=== PATIENT | male | born 1950 | race Caucasian/White ===

== ENCOUNTER 2018-06-05 13:14 | Inpatient (IN) | payer MEDICARE ==
[~2018-06-05] VITALS: Ht 167.6 cm; Wt 68.0 kg
[2018-06-05] MEDS ORDERED: ACET325T53 PO (13:43)
[2018-06-05] MEDS ORDERED: CARV3.12 PO (13:43)
[2018-06-05] MEDS ORDERED: HYDR-3326 PO (13:43)
[2018-06-05] MEDS ORDERED: HYDR-552 PO (13:43)
[2018-06-05] MEDS ORDERED: BENA40TA67 PO (13:43)
[2018-06-05] MEDS ORDERED: FAMO-132 PO (13:43)
[2018-06-05] MEDS ORDERED: LORA-258 PO (13:43)
[2018-06-05] MEDS ORDERED: CLOP75TA15 PO (13:43)
[2018-06-05] MEDS ORDERED: DIVA125T2 PO (13:43)
[2018-06-05] MEDS ORDERED: FLUV25TA3 PO (13:43)
[2018-06-05] MEDS ORDERED: SIMV20TA2 PO (13:43)
[2018-06-05] MEDS ORDERED: CALC-883 PO (13:43)
[2018-06-05] MEDS ORDERED: LINA145C PO (13:43)
[2018-06-05] MEDS ORDERED: MELA3TAB PO (13:43)
[2018-06-05 13:45] LABS: BASOPHILS # (AUTO) 0.1 K/uL (0.0-8.0); BASOPHILS % (AUTO) 0.7 % (0.0-2.0); EOSINOPHILS # (AUTO) 0.1 K/uL (0.0-0.7); EOSINOPHILS % (AUTO) 0.9 % (0.0-7.0); HEMATOCRIT 52.4 % (36.7-47.1); HEMOGLOBIN 17.9 g/dL (12.5-16.3); LYMPHOCYTES # (AUTO) 1.6 K/uL (20.0-40.0); LYMPHOCYTES % (AUTO) 14.9 % (20.5-51.5); MEAN CORPUSCULAR HEMOGLOBIN 31.7 uug (23.8-33.4); MEAN CORPUSCULAR HGB CONC 34 g/dL (32.5-36.3); MEAN CORPUSCULAR VOLUME 92.9 fL (73.0-96.2); MONOCYTES # (AUTO) 1.2 K/uL (2.0-10.0); MONOCYTES % (AUTO) 11.4 % (0.0-11.0); NEUTROPHILS # (AUTO) 7.8 K/uL (1.8-8.9); NEUTROPHILS % (AUTO) 72.1 % (38.5-71.5); PLATELET COUNT (AUTO) 219 K/uL (152-348); RED BLOOD CELL COUNT(AUTO) 5.64 MIL/uL (4.06-5.63); WHITE BLOOD COUNT (AUTO) 10.8 K/uL (3.6-10.2)
[2018-06-05 13:54] LABS: CREATININE 1.5 mg/dL (0.6-1.3)
--- NOTE | 2018-06-05 14:00 | NUR ---
PT IS IN ROOM #2B. DR GARCÍA EVALUATED THE PT.
[2018-06-05] MEDS ORDERED: MAGNESIUM HYDROXIDE 30 ML LIQUID UDC PO PRN (15:45)
[2018-06-05] MEDS ORDERED: ONDANSETRON 4 MG/2 ML VIAL IV PRN (15:45)
[2018-06-05] MEDS ORDERED: ACETAMINOPHEN 325 MG TABLET PO PRN (15:45)
[2018-06-05] MEDS ORDERED: Z GUARD REMEDY PASTE 57 GM TUBE TOP PRN (15:45)
--- NOTE | 2018-06-05 17:18 | NUR ---
REPORT WAS GIVEN TO RN M/S. PT WAS TRANSFERED TO ROOM #217.
--- NOTE | 2018-06-05 17:35 | NUR ---
PATIENT TRANSFERRED ONTO MED-SURG UNIT AT THIS TIME IN STABLE CONDITION. VITAL SIGNS TAKEN, BP ELEVATED - NOTIFIED BRIDGE INSPECTOR. ADMITTING ORDERS PLACED BY BRIDGE INSPECTOR. BELONGINGS CHECKLIST COMPLETED, SIGNED. PATIENT ON BEDREST. COOPERATIVE AT THIS TIME. 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 BASELINE NEURO-CHECK IMPLEMENTED. ID-BAND PLACED. PATIENT IS VERY FORGETFUL, ALERT TO SELF. DOES NOT KNOW THE TIME OR WHERE HE IS. BED IN LOCKED/LOW POSITION, SIDE RAILS UP X3. BED ALARM ON, CALL LIGHT WITHIN REACH OF PATIENT.
[2018-06-05 17:42] VITALS: BP 168/69
[2018-06-05] MEDS: DIVALPROEX 125 MG TABLET.DR PO SCH (18:19)
[2018-06-05] MEDS: LORAZEPAM 0.5 MG TABLET PO SCH (18:19)
[2018-06-05 20:00] VITALS: BP 123/84
--- NOTE | 2018-06-05 20:00 | NUR ---
RECEIVED PATIENT AWAKE IN BED. A/O X3 BUT VERY FORGETFUL. NEEDS REINFORCEMENT, VSS. H/L INTACT AND PATENT. DENIES PAIN. NO RESP. DISTRESS NOTED. C/O CONSTIPATION. BED ALARM ON. CALL LIGHT IN REACH. ALL NEEDS ATTENDED. WILL CONTINUE TO MONITOR AND ASSESS.
[2018-06-05] MEDS: MELATONIN 3 MG TABLET PO SCH (20:22)
[2018-06-05] MEDS: SIMVASTATIN 20 MG TABLET PO SCH (20:22)
[2018-06-05] MEDS: FAMOTIDINE 20 MG TABLET PO SCH (20:22)
[2018-06-05] MEDS: CARVEDILOL 3.125 MG TABLET PO SCH (20:22)
[2018-06-05] MEDS: FLUVOXAMINE MALEATE 25 MG TABLET PO SCH (20:23)
--- NOTE | 2018-06-05 20:30 | NUR ---
PATIENT MOM 30ML PRN FOR CONSTIPATION. WILL CONTINUE TO MONITOR.
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
[2018-06-06 04:00] VITALS: BP 123/74
--- NOTE | 2018-06-06 05:48 | NUR ---
PATIENT AWAKE IN BED. REPOSITIONED. SLEPT WELL THROUGHOUT THE NIGHT. BED ALARM ON. CALL LIGHT IN REACH. ALL NEEDS ATTENDED, WILL CONTINUE TO MONITOR AND ASSESS.
[2018-06-06] MEDS: PANTOPRAZOLE SODIUM 40 MG TABLET.DR PO SCH (06:07)
[2018-06-06 06:34] LABS: BASOPHILS % (AUTO) 0.4 % (0.0-2.0); EOSINOPHILS # (AUTO) 0.1 K/uL (0.0-0.7); EOSINOPHILS % (AUTO) 1.4 % (0.0-7.0); HEMATOCRIT 52.1 % (36.7-47.1); HEMOGLOBIN 17.6 g/dL (12.5-16.3); LYMPHOCYTES # (AUTO) 1.6 K/uL (20.0-40.0); MEAN CORPUSCULAR HEMOGLOBIN 31.9 uug (23.8-33.4); MEAN CORPUSCULAR HGB CONC 34 g/dL (32.5-36.3); MEAN CORPUSCULAR VOLUME 94.6 fL (73.0-96.2); MONOCYTES # (AUTO) 1.1 K/uL (2.0-10.0); MONOCYTES % (AUTO) 12.3 % (0.0-11.0); NEUTROPHILS # (AUTO) 5.9 K/uL (1.8-8.9); NEUTROPHILS % (AUTO) 67.9 % (38.5-71.5); PLATELET COUNT (AUTO) 212 K/uL (152-348); RED BLOOD CELL COUNT(AUTO) 5.51 MIL/uL (4.06-5.63); WHITE BLOOD COUNT (AUTO) 8.8 K/uL (3.6-10.2)
[2018-06-06 06:48] LABS: CREATININE 1.8 mg/dL (0.6-1.3); MAGNESIUM 2.4 mg/dL (1.8-2.4); POTASSIUM 4.1 mmol/L (3.5-5.1)
[2018-06-06 07:01] LABS: THYROID STIMULATING HORMONE 1.106 mIU/mL (0.358-3.740)
[2018-06-06] MEDS: LORAZEPAM 0.5 MG TABLET PO SCH ×2 (08:45→16:04)
[2018-06-06] MEDS: DIVALPROEX 125 MG TABLET.DR PO SCH ×2 (08:45→16:04)
[2018-06-06] MEDS: CALCIUM CARB/VITAMIN D 500MG-200UNITS TABLET PO SCH (08:46)
[2018-06-06] MEDS: CLOPIDOGREL 75 MG TABLET PO SCH (08:46)
[2018-06-06] MEDS: CARVEDILOL 3.125 MG TABLET PO SCH ×2 (08:46→20:44)
[2018-06-06] MEDS: BENAZEPRIL HCL 20 MG TABLET PO SCH (08:46)
[2018-06-06] MEDS: ACETAMINOPHEN 325 MG TABLET PO PRN (08:47)
[2018-06-06] MEDS ORDERED: Medication Not On Formulary EA (Linaclotide (Linzess) 145 MCG) PO SCH (09:00)
[2018-06-06 11:09] VITALS: BP 113/73
[2018-06-06] MEDS ORDERED: IV NS 1000 ML 1,000 ML IV ONE (12:30)
[2018-06-06 15:12] VITALS: BP 105/54
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
--- NOTE | 2018-06-06 19:30 | NUR ---
Patient stable at start of shift with no acute distress. Vital signs within range. Pertinent assessment completed. A/Ox2-3 & able to make most of his needs known. Noted with right forearm IV 20G running with NS at 100cc/hr. Call light in reach. Will continue to monitor through shift.
[2018-06-06 20:00] VITALS: BP 138/73
[2018-06-06] MEDS: FLUVOXAMINE MALEATE 25 MG TABLET PO SCH (20:44)
[2018-06-06] MEDS: MELATONIN 3 MG TABLET PO SCH (20:44)
[2018-06-06] MEDS: FAMOTIDINE 20 MG TABLET PO SCH (20:44)
[2018-06-06] MEDS: SIMVASTATIN 20 MG TABLET PO SCH (20:44)
[2018-06-07 04:00] VITALS: BP 127/77
--- NOTE | 2018-06-07 05:53 | NUR ---
Patient slept well during the night. No acute distress noted. Vital signs remained stable through shift. Complaint with care. All medications administered per MD order. All needs attended to. Kept clean & dry, diaper changed per soiling. Skin care provided. Safety measures maintained. Call light within reach. Will endorse to oncoming shift.
[2018-06-07] MEDS: PANTOPRAZOLE SODIUM 40 MG TABLET.DR PO SCH (06:18)
[2018-06-07 06:19] LABS: BASOPHILS % (AUTO) 0.4 % (0.0-2.0); EOSINOPHILS # (AUTO) 0.2 K/uL (0.0-0.7); HEMATOCRIT 47.3 % (36.7-47.1); LYMPHOCYTES # (AUTO) 1.2 K/uL (20.0-40.0); LYMPHOCYTES % (AUTO) 16.2 % (20.5-51.5); MEAN CORPUSCULAR HEMOGLOBIN 31.5 uug (23.8-33.4); MEAN CORPUSCULAR HGB CONC 34 g/dL (32.5-36.3); MEAN CORPUSCULAR VOLUME 92.8 fL (73.0-96.2); MONOCYTES # (AUTO) 0.7 K/uL (2.0-10.0); MONOCYTES % (AUTO) 9.6 % (0.0-11.0); NEUTROPHILS # (AUTO) 5.4 K/uL (1.8-8.9); NEUTROPHILS % (AUTO) 71.8 % (38.5-71.5); PLATELET COUNT (AUTO) 195 K/uL (152-348); WHITE BLOOD COUNT (AUTO) 7.5 K/uL (3.6-10.2)
[2018-06-07 06:38] LABS: CREATININE 1.4 mg/dL (0.6-1.3); MAGNESIUM 2.1 mg/dL (1.8-2.4); PHOSPHOROUS 3.3 mg/dL (2.5-4.9); POTASSIUM 3.8 mmol/L (3.5-5.1)
--- NOTE | 2018-06-07 07:00 | NUR ---
RECEIVED PATIENT ON BED ASLEEP. NO ACUTE DISTRESS NOTED. AAO X 2 W/ BOUTS OF CONFUSION NOTED. LEFT SIDED WEAKNESS NOTED. IV ACCESS ON THE LEFT FOREARM #20 INTACT AND PATENT. INCONTINENT, USES DIAPER. TAKES PILLS WHOLE. NO COMPLAINTS OF PAIN/DISCOMFORT AT THIS TIME. COMFORT MEASURES PROVIDED. WILL CONTINUE TO MONITOR CLOSELY.
[2018-06-07] MEDS: LORAZEPAM 0.5 MG TABLET PO SCH ×2 (08:53→16:06)
[2018-06-07] MEDS: CALCIUM CARB/VITAMIN D 500MG-200UNITS TABLET PO SCH (08:53)
[2018-06-07] MEDS: CLOPIDOGREL 75 MG TABLET PO SCH (08:53)
[2018-06-07] MEDS: DIVALPROEX 125 MG TABLET.DR PO SCH ×2 (08:53→16:06)
[2018-06-07] MEDS: CARVEDILOL 3.125 MG TABLET PO SCH ×2 (08:59→20:37)
[2018-06-07] MEDS: BENAZEPRIL HCL 20 MG TABLET PO SCH (08:59)
[2018-06-07 11:35] VITALS: BP 113/75
[2018-06-07 12:14] LABS: *BILIRUBIN,URIN NEGATIVE (NEGATIVE); *BLOOD, URINE Trace-intact (NEGATIVE); *CLARITY,URINE CLEAR (CLEAR); *COLOR,URINE YELLOW (YELLOW); *KETONES,URINE NEGATIVE (NEGATIVE); *PROTEIN,URINE NEGATIVE (NEGATIVE); *UROBILINOGEN,URINE 0.2 E.U./dl (NORMAL); LEUKOCYTE ESTERASE ,URINE NEGATIVE (NEGATIVE); NITRITE, URINE NEGATIVE (NEGATIVE); PH,URINE 8.5 (5.0-8.0); UGLUCOSE NEGATIVE (NEGATIVE)
[2018-06-07 12:39] LABS: BACTERIA,URINE NONE SEEN /HPF (NONE SEEN); RBC,URINE 0-3 /HPF (0-3); WBC,URINE 0-3 /HPF (0-3)
[2018-06-07 12:40] LABS: SQUAMOUS EPITHELIAL CELL,UR FEW /HPF (NONE SEEN)
[2018-06-07] MEDS: HYDROCODONE/APAP 5-325MG TABLET PO PRN ×2 (13:51→23:36)
[2018-06-07 15:24] VITALS: BP 110/70
--- NOTE | 2018-06-07 18:11 | NUR ---
END OF SHIFT NOTES: PATIENT ON BED, AWAKE, IN STABLE CONDITION. PATIENT HAD EPISODES OF CONFUSION AND AGITATION THROUGHOUT SHIFT M/B YELLING AND BEING COMBATIVE DURING CARE. ADMINISTERED ATIVAN 0.5 BID SCHEDULED. REDIRECTED PATIENT NEEDED. IV ACCESS ON LFA #20 STILL INTACT AND PATENT. NO COMPLAINTS OF PAIN/DISCOMFORT AT THIS TIME. SAFETY PRECS OBSERVED AT ALL TIMES. ALL NEEDS ATTENDED AND ANTICIPATED. CALL LIGHT WITHIN REACH. WILL CONTINUE TO MONITOR CLOSELY.
[2018-06-07 20:00] VITALS: BP 130/69
--- NOTE | 2018-06-07 20:00 | NUR ---
Observed to be resting in bed with no s/s of acute distress noted at this time. Pt repositioned and made comfortable. Safe environment implemented at all times. Call light within reach.Will continue to monitor closely.
[2018-06-07] MEDS: FLUVOXAMINE MALEATE 25 MG TABLET PO SCH (20:37)
[2018-06-07] MEDS: SIMVASTATIN 20 MG TABLET PO SCH (20:38)
[2018-06-07] MEDS: MELATONIN 3 MG TABLET PO SCH (20:38)
[2018-06-07] MEDS: FAMOTIDINE 20 MG TABLET PO SCH (20:38)
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
[2018-06-08] MEDS ORDERED: QUETIAPINE FUMARATE 25 MG TABLET PO ONE (00:30)
[2018-06-08 05:56] VITALS: BP 149/67
[2018-06-08 06:18] LABS: BASOPHILS % (AUTO) 0.6 % (0.0-2.0); EOSINOPHILS # (AUTO) 0.2 K/uL (0.0-0.7); EOSINOPHILS % (AUTO) 2.3 % (0.0-7.0); HEMATOCRIT 50.4 % (36.7-47.1); LYMPHOCYTES # (AUTO) 1.9 K/uL (20.0-40.0); LYMPHOCYTES % (AUTO) 24.7 % (20.5-51.5); MEAN CORPUSCULAR HEMOGLOBIN 31.8 uug (23.8-33.4); MEAN CORPUSCULAR HGB CONC 34 g/dL (32.5-36.3); MEAN CORPUSCULAR VOLUME 94.3 fL (73.0-96.2); MONOCYTES # (AUTO) 0.9 K/uL (2.0-10.0); MONOCYTES % (AUTO) 11.6 % (0.0-11.0); NEUTROPHILS # (AUTO) 4.8 K/uL (1.8-8.9); NEUTROPHILS % (AUTO) 60.8 % (38.5-71.5); PLATELET COUNT (AUTO) 206 K/uL (152-348); RED BLOOD CELL COUNT(AUTO) 5.34 MIL/uL (4.06-5.63); WHITE BLOOD COUNT (AUTO) 7.8 K/uL (3.6-10.2)
[2018-06-08] MEDS: PANTOPRAZOLE SODIUM 40 MG TABLET.DR PO SCH (06:19)
[2018-06-08 06:44] LABS: CREATININE 1.4 mg/dL (0.6-1.3); MAGNESIUM 1.9 mg/dL (1.8-2.4); PHOSPHOROUS 3.8 mg/dL (2.5-4.9); POTASSIUM 3.7 mmol/L (3.5-5.1)
--- NOTE | 2018-06-08 06:46 | NUR ---
Pt remained stable after episode. No s/s of acute distress noted at this time. Safe environment provided.
--- NOTE | 2018-06-08 07:30 | NUR ---
AWAKE LAERT TO SELF WITH CONFUSSION ALL NEEDS ANTICIPATED AND SATISFIED MAX ASSIST FOR ALL ADL.MADE COMFORTABLE AND WILL CONTINUE TO OBSERVE PATIENT.
[2018-06-08] MEDS: CALCIUM CARB/VITAMIN D 500MG-200UNITS TABLET PO SCH (08:10)
[2018-06-08] MEDS: CLOPIDOGREL 75 MG TABLET PO SCH (08:10)
[2018-06-08] MEDS: LORAZEPAM 0.5 MG TABLET PO SCH ×2 (08:10→16:37)
[2018-06-08] MEDS: BENAZEPRIL HCL 20 MG TABLET PO SCH (08:10)
[2018-06-08] MEDS: DIVALPROEX 125 MG TABLET.DR PO SCH ×2 (08:10→16:38)
[2018-06-08] MEDS: CARVEDILOL 3.125 MG TABLET PO SCH ×2 (08:11→20:20)
--- NOTE | 2018-06-08 11:25 | NUR ---
PATIENT SEEN AND EXAMINED BY [employer] WITH NEW ORDERS AND NOTED.
[2018-06-08 11:42] VITALS: BP 107/62
--- NOTE | 2018-06-08 13:43 | NUR ---
RESTING IN BED QUIET NO S/S OF PAIN OR DISCOMFORTS AT THIS TIME NO FACIAL GRIMACING OR MOANING WILL CONTINUE TO OBSERVE PATIENT.
[2018-06-08 16:00] VITALS: BP 126/66
[2018-06-08] MEDS: ACETAMINOPHEN 325 MG TABLET PO PRN (16:37)
--- NOTE | 2018-06-08 17:00 | NUR ---
STARTING TO GET AGITATED COMPLAINING OF PAIN DUE MEDICATIONS AND TYLENOL GIVEN ORAL AND TOLERATED KIET PATIENT IS RESISTIVE TO BEING REPOSITIONED SCREAMED WHEN I ATTEMPTED TO FLUFF HIS PILLOW AND REPOSITION HIS HEAD PATIENT REASSURED THAT I AM TRYING TO MAKE HIM COMFORTABLE SEEMS TO UNDERSTAND AT THIS TIME BUT WILL CONTINUE TO OBSERVE.
--- NOTE | 2018-06-08 18:39 | NUR ---
RESTING QUIET AT THIS TIME.
--- NOTE | 2018-06-08 19:45 | NUR ---
RECEIVED PATIENT IN BED AWAKE, NO S/S OF PAIN NOR DISCOMFORT, NO YELLING NO SCREAMING NOTED AT THIS TIME. TURN AND REPOSITION, KEPT CLEAN AND DRY. CONT TO MONITOR.
[2018-06-08 19:58] VITALS: BP 141/83
[2018-06-08] MEDS: FLUVOXAMINE MALEATE 25 MG TABLET PO SCH (20:19)
[2018-06-08] MEDS: SIMVASTATIN 20 MG TABLET PO SCH (20:19)
[2018-06-08] MEDS: FAMOTIDINE 20 MG TABLET PO SCH (20:19)
[2018-06-08] MEDS ORDERED: MELATONIN 3 MG TABLET ONE (21:48)
[2018-06-08] MEDS: MELATONIN 3 MG TABLET PO SCH (21:50)
[2018-06-09] MEDS: HYDROCODONE/APAP 5-325MG TABLET PO PRN (00:39)
[2018-06-09 04:54] VITALS: BP 133/77
[2018-06-09] MEDS: PANTOPRAZOLE SODIUM 40 MG TABLET.DR PO SCH (05:58)
[2018-06-09 06:00] LABS: BASOPHILS % (AUTO) 0.4 % (0.0-2.0); EOSINOPHILS # (AUTO) 0.2 K/uL (0.0-0.7); HEMATOCRIT 52.3 % (36.7-47.1); HEMOGLOBIN 17.8 g/dL (12.5-16.3); LYMPHOCYTES # (AUTO) 1.6 K/uL (20.0-40.0); LYMPHOCYTES % (AUTO) 22.1 % (20.5-51.5); MEAN CORPUSCULAR HEMOGLOBIN 31.5 uug (23.8-33.4); MEAN CORPUSCULAR HGB CONC 34 g/dL (32.5-36.3); MEAN CORPUSCULAR VOLUME 92.8 fL (73.0-96.2); MONOCYTES # (AUTO) 0.8 K/uL (2.0-10.0); MONOCYTES % (AUTO) 10.6 % (0.0-11.0); NEUTROPHILS # (AUTO) 4.7 K/uL (1.8-8.9); NEUTROPHILS % (AUTO) 63.9 % (38.5-71.5); PLATELET COUNT (AUTO) 225 K/uL (152-348); RED BLOOD CELL COUNT(AUTO) 5.64 MIL/uL (4.06-5.63); WHITE BLOOD COUNT (AUTO) 7.4 K/uL (3.6-10.2)
[2018-06-09 06:23] LABS: CREATININE 1.5 mg/dL (0.6-1.3); MAGNESIUM 2.1 mg/dL (1.8-2.4); PHOSPHOROUS 3.4 mg/dL (2.5-4.9); POTASSIUM 4.1 mmol/L (3.5-5.1)
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
--- NOTE | 2018-06-09 07:30 | NUR ---
AWAKE ALERT TO SELF WITH CONFUSSION AND DISORIENTATION ALL NEEDS ANTICIPATED AND SATISFIED TOTALLY DEPENDENT FOR ALL ADL.TURNED AND REPOSITIONED Q2H INCONTINENT CARE TOLERATED WELL MADE COMFORTABLE AND WILL CONTINUE TO OBSERVE.
[2018-06-09] MEDS: CALCIUM CARB/VITAMIN D 500MG-200UNITS TABLET PO SCH (08:18)
[2018-06-09] MEDS: CLOPIDOGREL 75 MG TABLET PO SCH (08:18)
[2018-06-09] MEDS: DIVALPROEX 125 MG TABLET.DR PO SCH ×2 (08:18→16:08)
[2018-06-09] MEDS: LORAZEPAM 0.5 MG TABLET PO SCH ×2 (08:18→16:08)
[2018-06-09] MEDS: BENAZEPRIL HCL 20 MG TABLET PO SCH (08:19)
[2018-06-09] MEDS: CARVEDILOL 3.125 MG TABLET PO SCH (08:20)
[2018-06-09] MEDS ORDERED: IV NORMAL SALINE 500 ML BAG IV ONE (08:45)
[2018-06-09] MEDS ORDERED: IV NORMAL SALINE 500 ML IV ONE (08:45)
--- NOTE | 2018-06-09 09:55 | NUR ---
ORDER NOTED TO DISCHARGE PATIENT TO [facility] TODAY PATIENT IS CURRENTLY RECEIVING HIS BOLUS ORDERED WILL INFORM THE AUDIO VIDEO TECHNICIAN RE ARRANGING THE DISCHARGE.
[2018-06-09 11:12] VITALS: BP 143/79
--- NOTE | 2018-06-09 14:00 | NUR ---
CALLED [facility] AND REPORT GIVEN TO SUSHANT WILLIS FOR CONTINUING CARE CALLED THE AMBULANCE FOR PICK AND THEY WILL BE HERE ABOUT 1545 PATIENT AWARE BUT ALERT TO SELF AND REMAINS CONFUSED.
[2018-06-09 15:40] VITALS: BP 129/93
--- NOTE | 2018-06-09 16:30 | NUR ---
PATIENT DISCHARGED PICKED UP BY THE AMBULANCE TO [facility] REMOVED PATIENT HAS NO PERSONAL BELONGINGS REPORT FOR CONTINUING CARE GIVEN DISCHARGED IN SATISFACTORY CONDITION.
[2018-06-10 20:00] VITALS: BP 121/67
== END 2018-06-09 16:30 | DRG 56 ==
LOC: ER 13:15 → MED 17:15
PROVIDERS: ADMIT Registered Nurse; ATTEND Internal Medicine
DX: G91.2 (Idiopathic) normal pressure hydrocephalus (principal); N17.0 Acute kidney failure with tubular necrosis; G93.40 Encephalopathy, unspecified; I50.32 Chronic diastolic (congestive) heart failure; F31.30 Bipolar disorder, current episode depressed, mild or moderate severity, unspecified; T76.11XA Adult physical abuse, suspected, initial encounter; I11.0 Hypertensive heart disease with heart failure; Z79.02 Long term (current) use of antithrombotics/antiplatelets; Z79.899 Other long term (current) drug therapy; K21.9 Gastro-esophageal reflux disease without esophagitis; I69.30 Unspecified sequelae of cerebral infarction; F41.9 Anxiety disorder, unspecified; E78.5 Hyperlipidemia, unspecified; D75.1 Secondary polycythemia; D72.829 Elevated white blood cell count, unspecified; F03.90 Unspecified dementia, unspecified severity, without behavioral disturbance, psychotic disturbance, mood disturbance, and anxiety; G93.89 Other specified disorders of brain; I67.2 Cerebral atherosclerosis; M54.9 Dorsalgia, unspecified; W19.XXXA Unspecified fall, initial encounter; Z91.81 History of falling; Y93.9 Activity, unspecified; Y92.129 Unspecified place in nursing home as the place of occurrence of the external cause; E86.0 Dehydration
CPT/HCPCS: 36415; 70030-TC; 70450; 71045; 72100; 83735; 84100; 84443; 85025; 85730; 93005; 93307; 93880; 95819; 97165; A4663; C1758; J7030; J7040